=== PATIENT | female | born 1970 | race Caucasian/White ===

== ENCOUNTER 2017-09-18 12:50 | Outpatient (CLI) | payer OTHER | END 2017-09-18 12:51 | disposition home or self-care (01) | LOC: BICMRI 12:50 | PROVIDERS: ATTEND Specialist | DX: M51.14 Intervertebral disc disorders with radiculopathy, thoracic region (principal); R60.0 Localized edema | CPT/HCPCS: 72146 ==

== ENCOUNTER 2017-10-15 08:32 | Outpatient (CLI) | payer OTHER | END 2017-10-15 08:33 | disposition home or self-care (01) | LOC: BICMRI 08:32 | PROVIDERS: ATTEND Specialist | DX: M47.22 Other spondylosis with radiculopathy, cervical region (principal); R22.2 Localized swelling, mass and lump, trunk; M47.894 Other spondylosis, thoracic region | CPT/HCPCS: 72040; 72141; 72147 ==

== ENCOUNTER 2018-03-30 08:19 | Outpatient (CLI) | payer OTHER ==
[2018-03-30] MEDS ORDERED: Gadobenate Dimeglumine 529 MG/1 ML (20ML VIAL) ONE (08:36)
== END 2018-03-30 08:20 | disposition home or self-care (01) ==
LOC: BICMRI 08:19
PROVIDERS: ATTEND Otolaryngology Plastic Surgery within the Head & Neck
DX: R42 Dizziness and giddiness (principal)
CPT/HCPCS: 70553; A9579

== ENCOUNTER 2020-12-30 10:04 | Observation (INO) | payer OTHER ==
[2020-12-30 11:06] LABS: #Basophils 0.1 thou/uL (0.0-0.2); #Eosinphils 0.2 thou/uL (0.0-0.7); #Lymphocytes 2.5 thou/uL (1.20-3.40); #Monocytes 0.5 thou/uL (0.11-0.59); #Neutrophils 2.5 thou/uL (1.40-6.50); %Basophils 1.1 % (0.0-1.0); %Eosinophils 2.7 % (0.0-10.0); %Lymphocytes 43.3 % (21.0-51.0); %Monocytes 8.5 % (0.0-10.0); %Neutrophils 44.4 % (42.0-75.0); Hemoglobin 16.4 g/dL (12.0-16.0); Mean Corpuscular HGB CONC 34.4 g/dL (32.0-36.0); Mean Corpuscular Hemoglobin 35.5 pg (27.0-31.0); Platelet Count 261 thou/uL (130-400); RBC Distribution Width 13.3 % (11.5-14.5); Red Blood Cell (RBC) Count 4.63 mill/uL (4.20-5.40); White Blood Cell (WBC) Count 5.7 thou/uL (4.8-10.8)
[2020-12-30] MEDS ORDERED: Iopamidol-370 76% 500 ML 1 ML ONE (11:08)
[2020-12-30 11:16] LABS: ALT (SGPT) 24 U/L (8-55); AST (SGOT) 29 U/L (5-34); Albumin 3.9 g/dL (3.5-5.0); Alkaline Phosphatase 58 U/L (40-110); Anion Gap 16 mmol/L (10-20); BUN (Urea Nitrogen) 5 mg/dL (7.0-18.7); Bilirubin, Total 0.4 mg/dL (0.2-1.2); Calc. Creatinine Clearance 0 mL/min (70-130); Calcium 8.8 mg/dL (7.8-10.44); Carbon Dioxide 25 mmol/L (22-29); Chloride 104 mmol/L (98-107); Globulin 2.6 g/dL (2.4-3.5); Glucose 103 mg/dL (70-105); Potassium 3.6 mmol/L (3.5-5.1); Protein, Total 6.5 g/dL (6.0-8.3); Sodium 141 mmol/L (136-145)
[2020-12-30 11:20] LABS: Troponin I Less than 0.010 ng/mL (< 0.028)
[2020-12-30] MEDS ORDERED: Aspirin 325 MG TAB ONE (13:13)
[2020-12-30 14:31] LABS: Troponin I Less than 0.010 ng/mL (< 0.028)
[2020-12-30 16:29] LABS: #Basophils 0.1 thou/uL (0.0-0.2); #Eosinphils 0.1 thou/uL (0.0-0.7); #Lymphocytes 2.1 thou/uL (1.20-3.40); #Monocytes 0.6 thou/uL (0.11-0.59); #Neutrophils 4.4 thou/uL (1.40-6.50); %Basophils 1.5 % (0.0-1.0); %Eosinophils 1.4 % (0.0-10.0); %Monocytes 7.8 % (0.0-10.0); %Neutrophils 60.4 % (42.0-75.0); Hemoglobin 16.4 g/dL (12.0-16.0); Mean Corpuscular Hemoglobin 36.1 pg (27.0-31.0); Mean Platelet Volume 7.8 fL (7.4-10.4); Platelet Count 267 thou/uL (130-400); RBC Distribution Width 13.3 % (11.5-14.5); Red Blood Cell (RBC) Count 4.53 mill/uL (4.20-5.40); White Blood Cell (WBC) Count 7.3 thou/uL (4.8-10.8)
[2020-12-30 16:49] LABS: ALT (SGPT) 25 U/L (8-55); AST (SGOT) 28 U/L (5-34); Alkaline Phosphatase 62 U/L (40-110); Anion Gap 15 mmol/L (10-20); BUN (Urea Nitrogen) 7 mg/dL (7.0-18.7); Bilirubin, Total 0.4 mg/dL (0.2-1.2); Calc. Creatinine Clearance 0 mL/min (70-130); Calcium 9.3 mg/dL (7.8-10.44); Carbon Dioxide 26 mmol/L (22-29); Chloride 102 mmol/L (98-107); Globulin 2.7 g/dL (2.4-3.5); Glucose 155 mg/dL (70-105); Potassium 3.9 mmol/L (3.5-5.1); Protein, Total 6.7 g/dL (6.0-8.3); Sodium 139 mmol/L (136-145)
[2020-12-30 17:44] VITALS: BMI 23.3
[2020-12-30] MEDS ORDERED: Dexamethasone 10 MG/ML VIAL SLOW IVP SCH (18:30)
[2020-12-30] MEDS ORDERED: Atorvastatin Calcium 40 MG TAB PO SCH (21:00)
[2020-12-31 00:15] LABS: SARS-CoV-2 PCR by NAA Not Detected (NotDetected)
[2020-12-31 05:52] LABS: Cardiac Risk 2.2 (Less than 4.5); Magnesium 2.1 mg/dL (1.6-2.6)
[2020-12-31 06:14] LABS: Thyroid Stimulating Hormone 0.5217 uIU/mL (0.35-4.94)
[2020-12-31 07:48] VITALS: BP 147/97; TEMP 97.9
[2020-12-31] MEDS ORDERED: Aspirin 81 mg Enteric Coated Tablet PO SCH (09:00)
== END 2020-12-31 13:03 | disposition home or self-care (01) ==
LOC: ERS 10:04 → 2SE 13:44
PROVIDERS: ADMIT Internal Medicine; ATTEND Internal Medicine
DX: G56.31 Lesion of radial nerve, right upper limb (principal); D75.89 Other specified diseases of blood and blood-forming organs; E53.8 Deficiency of other specified B group vitamins; F10.10 Alcohol abuse, uncomplicated; F17.210 Nicotine dependence, cigarettes, uncomplicated; I10 Essential (primary) hypertension; M50.30 Other cervical disc degeneration, unspecified cervical region; J45.909 Unspecified asthma, uncomplicated; Z20.822 Contact with and (suspected) exposure to COVID-19; Z88.1 Allergy status to other antibiotic agents; Z79.899 Other long term (current) drug therapy
CPT/HCPCS: 36415; 70496; 70498; 70551; 71045; 72141; 80053; 80061; 82607; 82746; 83735; 84443; 84484; 85025; 93005; 96374; G0378; J1100; Q9967; U0003; U0005

== ENCOUNTER 2024-05-20 11:27 | Inpatient (IN) | payer OTHER, SELFPAY ==
[2024-05-20 12:45] LABS: Troponin I Less than 0.010 ng/mL (< 0.028)
[2024-05-20 12:49] LABS: ALT (SGPT) 17 U/L (8-55); AST (SGOT) 26 U/L (5-34); Albumin 2.3 g/dL (3.5-5.0); Alkaline Phosphatase 120 U/L (40-110); Anion Gap 12 mmol/L (10-20); BUN (Urea Nitrogen) 7 mg/dL (9.8-20.1); Bilirubin, Total 0.7 mg/dL (0.2-1.2); Calc. Creatinine Clearance 0 mL/min (70-130); Calcium 8.3 mg/dL (7.8-10.44); Carbon Dioxide 26 mmol/L (22-29); Chloride 97 mmol/L (98-107); Estimated GFR 115; Globulin 3.4 g/dL (2.4-3.5); Glucose 112 mg/dL (70-105); Lipase 24 U/L (8-78); Potassium 2.4 mmol/L (3.5-5.1); Protein, Total 5.7 g/dL (6.0-8.3); Sodium 133 mmol/L (136-145)
[2024-05-20 13:03] LABS: #Basophils 0.04 10x3/uL (0.0-0.2); %Basophils 0.5 % (0.0-1.0); %Eosinophils 1.1 % (0.0-10.0); %Lymphocytes 26.8 % (21.0-51.0); %Monocytes 7.8 % (0.0-10.0); %Neutrophils 63.3 % (42.0-75.0); Hematocrit 35.2 % (36.0-47.0); Hemoglobin 12.9 g/dL (12.0-16.0); Mean Corpuscular HGB CONC 36.6 g/dL (32.0-36.0); Mean Corpuscular Hemoglobin 33.9 pg (27.0-31.0); Mean Corpuscular Volume 92.4 fL (78.0-98.0); Mean Platelet Volume 9.9 fL (7.4-10.4); Platelet Count 651 10x3/uL (130-400); RBC Distribution Width 14.4 % (11.5-14.5); Red Blood Cell (RBC) Count 3.81 mill/uL (4.20-5.40)
[2024-05-20 13:25] LABS: Prothrombin Time 12.9 sec (12.0-14.7)
[2024-05-20] MEDS ORDERED: Ipratropium/Albuterol 3 ML NEB ONE (13:41)
[2024-05-20] MEDS ORDERED: Potassium Chloride 20 MEQ (100 mL) BAG ONE ×2 (13:41→15:55)
[2024-05-20] MEDS ORDERED: Iopamidol-370 76% 500 ML MDV (1 ML CHARGE) ONE (14:08)
[2024-05-20 15:43] LABS: Bacteria/HPF None Seen HPF (None Seen); Bilirubin Negative (Negative); Blood, Urine Negative (Negative); CAUTI Indications for Culture Dysuria,urgency,freq; Clarity Clear (Clear); Glucose, Urine (Dipstick) Normal (Negative); Ketone, Urine Negative (Negative); Leukocyte 500 Leu/uL (Negative); Nitrite 2+ (Negative); Protein, Urine (Dipstick) 10 mg/dL (Neg-Trace); RBC/HPF 0-3 HPF (0-3); Squamous Epithelial 0-3 HPF (0-3); Urobilinogen Normal mg/dL (Less than 2); WBC/HPF 21-50 HPF (0-3)
[2024-05-20 15:44] LABS: Specific Gravity, Urine 1.047 (1.002-1.036)
[2024-05-20 15:45] LABS: Urine Culture Reflex Yes Yes
[2024-05-20] MEDS ORDERED: cefTRIAXone (ROCEPHIN) 2 GM VIAL ONE (15:56)
[2024-05-20] MEDS ORDERED: Sodium Chloride 0.9% 100 ML ONE (15:57)
[2024-05-20] MEDS ORDERED: Acetaminophen 325 MG TAB PO PRN (16:19)
[2024-05-20] MEDS ORDERED: Ondansetron PF 4 MG/2 ML Vial IVP PRN (16:19)
[2024-05-20] MEDS ORDERED: Acetaminophen 650 MG Suppository PR PRN (16:19)
[2024-05-20] MEDS ORDERED: Ondansetron ODT 4 MG TAB PO PRN (16:19)
[2024-05-20 17:13] LABS: Phosphorus 2.8 mg/dL (2.3-4.7)
[2024-05-20 18:40] VITALS: BMI 15.3
[2024-05-20] MEDS: Sodium Chloride 0.9% 1,000 ML IV SCH (21:31)
[2024-05-20] MEDS: Melatonin 3 MG TAB PO PRN (21:31)
[2024-05-20] MEDS: Famotidine 20 MG TAB PO SCH (21:31)
[2024-05-21 04:48] LABS: #Basophils 0.05 10x3/uL (0.0-0.2); %Basophils 0.6 % (0.0-1.0); %Eosinophils 1.6 % (0.0-10.0); %Lymphocytes 25.6 % (21.0-51.0); %Monocytes 8.1 % (0.0-10.0); %Neutrophils 63.9 % (42.0-75.0); Hematocrit 31.7 % (36.0-47.0); Hemoglobin 11.1 g/dL (12.0-16.0); Mean Corpuscular Hemoglobin 34.2 pg (27.0-31.0); Mean Corpuscular Volume 97.5 fL (78.0-98.0); Mean Platelet Volume 9.4 fL (7.4-10.4); Platelet Count 570 10x3/uL (130-400); RBC Distribution Width 14.7 % (11.5-14.5); Red Blood Cell (RBC) Count 3.25 mill/uL (4.20-5.40)
[2024-05-21 05:13] LABS: ALT (SGPT) 14 U/L (8-55); AST (SGOT) 23 U/L (5-34); Albumin 1.9 g/dL (3.5-5.0); Alkaline Phosphatase 101 U/L (40-110); Anion Gap 11 mmol/L (10-20); BUN (Urea Nitrogen) 5 mg/dL (9.8-20.1); Bilirubin, Total 0.5 mg/dL (0.2-1.2); Calc. Creatinine Clearance 112 mL/min (70-130); Calcium 7.4 mg/dL (7.8-10.44); Carbon Dioxide 24 mmol/L (22-29); Chloride 105 mmol/L (98-107); Estimated GFR 119; Globulin 2.8 g/dL (2.4-3.5); Glucose 109 mg/dL (70-105); Magnesium 1.8 mg/dL (1.6-2.6); Phosphorus 2.3 mg/dL (2.3-4.7); Potassium 2.7 mmol/L (3.5-5.1); Protein, Total 4.7 g/dL (6.0-8.3); Sodium 137 mmol/L (136-145)
[2024-05-21] MEDS ORDERED: Electrolyte Replacement Protocol 1 EACH FS SCH (08:00)
[2024-05-21] MEDS ORDERED: Electrolyte Replacement Protocol FS PRN (08:45)
[2024-05-21] MEDS: Multivitamin W/ Minerals 1 TAB PO SCH (08:58)
[2024-05-21] MEDS: Enoxaparin 30 MG (0.3 mL) SYRINGE SC SCH (08:59)
[2024-05-21] MEDS ORDERED: Enoxaparin 40 MG (0.4 mL) SYRINGE SC SCH (09:00)
[2024-05-21] MEDS: Magnesium 2 GM/50 ML(in water) 2 GM in Premix 1 BAG IVPB SCH (09:00)
[2024-05-21] MEDS: Potassium Chloride 20 MEQ in Premix 1 BAG IVPB SCH (09:00)
[2024-05-21] MEDS: Potassium Chloride 20 MEQ TAB PO SCH (09:38)
[2024-05-21 11:03] VITALS: BMI 15.3
[2024-05-21] MEDS ORDERED: Lidocaine 1% PF 5 ML VIAL ONE (13:58)
[2024-05-21] MEDS ORDERED: Sodium Bicarbonate 0.5 MEQ/ML SDV 10 ML ONE (14:14)
[2024-05-21 16:10] LABS: RBC Count-Automated (BF) 45 /cu.mm; WBC/Nucleated-Auto (BF) 294 /cu.mm
[2024-05-21] MEDS: Pancrelipase DR 12,000 1 CAP PO SCH (16:58)
[2024-05-21] MEDS: cefTRIAXone\\ROCEPHIN 1 GM in Sodium Chloride 0.9% 100 ML IVPB SCH (16:58)
[2024-05-21 17:25] LABS: BF Color Yellow; Body Fluid Source Peritoneal Fluid; Clarity Hazy (Clear); Tube # EDTA
[2024-05-21 17:32] LABS: BF Segmented Neutrophils 26 %; Cell Count Non Hematic 66 %; Lymphocytes 8 %
[2024-05-21] MEDS: Pantoprazole DR 40 MG TAB PO SCH (22:03)
[2024-05-21] MEDS ORDERED: Ipratropium/Albuterol 3 ML NEB NEB PRN (22:33)
[2024-05-22 04:31] LABS: #Basophils 0.05 10x3/uL (0.0-0.2); %Basophils 0.5 % (0.0-1.0); %Eosinophils 1.5 % (0.0-10.0); %Lymphocytes 20.6 % (21.0-51.0); %Monocytes 6.8 % (0.0-10.0); %Neutrophils 70.4 % (42.0-75.0); Hematocrit 31.3 % (36.0-47.0); Mean Corpuscular HGB CONC 35.1 g/dL (32.0-36.0); Mean Corpuscular Hemoglobin 34.4 pg (27.0-31.0); Mean Corpuscular Volume 97.8 fL (78.0-98.0); Mean Platelet Volume 9.6 fL (7.4-10.4); Platelet Count 542 10x3/uL (130-400); RBC Distribution Width 14.9 % (11.5-14.5)
[2024-05-22 04:52] LABS: ALT (SGPT) 13 U/L (8-55); AST (SGOT) 19 U/L (5-34); Albumin 1.6 g/dL (3.5-5.0); Alkaline Phosphatase 83 U/L (40-110); Anion Gap 8 mmol/L (10-20); BUN (Urea Nitrogen) 6 mg/dL (9.8-20.1); Bilirubin, Total 0.4 mg/dL (0.2-1.2); Calc. Creatinine Clearance 125 mL/min (70-130); Calcium 7.2 mg/dL (7.8-10.44); Carbon Dioxide 23 mmol/L (22-29); Chloride 107 mmol/L (98-107); Estimated GFR 122; Globulin 2.6 g/dL (2.4-3.5); Glucose 102 mg/dL (70-105); Magnesium 1.9 mg/dL (1.6-2.6); Potassium 3.2 mmol/L (3.5-5.1); Protein, Total 4.2 g/dL (6.0-8.3); Sodium 135 mmol/L (136-145)
[2024-05-22] MEDS ORDERED: Midazolam HCl 2 mg/2 ml Vial ONE (07:41)
[2024-05-22] MEDS ORDERED: Ketamine In 0.9 % NaCl 50 MG/5 ML SYRINGE ONE (07:41)
[2024-05-22] MEDS ORDERED: PROPOFOL 20 ML ONE (07:41)
[2024-05-22] MEDS ORDERED: GLYCOPYRROLATE/PF 0.2 MG/ML VIAL ONE (07:41)
[2024-05-22] MEDS: Potassium Chloride 20 MEQ TAB PO SCH (10:05)
[2024-05-22] MEDS: Magnesium 2 GM/50 ML(in water) 2 GM in Premix 1 BAG IVPB SCH (10:06)
[2024-05-22 17:29] VITALS: BP 131/92; TEMP 97.3
== END 2024-05-22 15:34 | disposition short-term general hospital (02) | DRG 439 ==
LOC: ERS 11:27 → SUATTDRO 11:27 → MSONC 16:11
PROVIDERS: ADMIT Family Medicine; ATTEND Internal Medicine
PROC: 0W9G3ZZ Drainage of Peritoneal Cavity, Percutaneous Approach (ICD-10-PCS; principal; 2024-05-21)
PROC: 0DB98ZX Excision of Duodenum, Via Natural or Artificial Opening Endoscopic, Diagnostic (ICD-10-PCS; 2024-05-22)
PROC: 0DB68ZX Excision of Stomach, Via Natural or Artificial Opening Endoscopic, Diagnostic (ICD-10-PCS; 2024-05-22)
DX: K86.89 Other specified diseases of pancreas (principal); N39.0 Urinary tract infection, site not specified; R18.8 Other ascites; E87.6 Hypokalemia; F10.20 Alcohol dependence, uncomplicated; K21.9 Gastro-esophageal reflux disease without esophagitis; J44.9 Chronic obstructive pulmonary disease, unspecified; Z88.8 Allergy status to other drugs, medicaments and biological substances; Z98.890 Other specified postprocedural states; F17.210 Nicotine dependence, cigarettes, uncomplicated; K29.70 Gastritis, unspecified, without bleeding; K29.80 Duodenitis without bleeding
CPT/HCPCS: 36415; 36416; 49083; 71260; 74177; 80053; 81001; 82042; 82105; 82140; 82378; 82550; 83605; 83690; 83735; 84100; 84157; 84443; 84484; 85025; 85060; 85610; 85730; 86301; 86304; 87070; 87077; 87086; 87186; 87205; 88112; 88305; 89051; 93005; 96361; 96365; 96366; 96367; J0696; J1650; J2250; J2704; J3475; J3480; J3490; J7030; J7620; Q9967